=== PATIENT | male | born 1990 | race Caucasian/White ===

== ENCOUNTER 2018-03-06 05:35 | Outpatient (CLI) | payer OTHER ==
[~2018-03-06] VITALS: Ht 185.4 cm; Wt 113.4 kg
== END 2018-03-06 11:44 ==
LOC: PREOP 05:35 → EDUNIT# 10:45 → PREOP 11:44
PROVIDERS: ATTEND Otolaryngology Otolaryngology/Facial Plastic Surgery
DX: Z01.818 Encounter for other preprocedural examination (principal)

== ENCOUNTER 2018-03-13 08:17 | Day surgery (SDC) | payer OTHER ==
[~2018-03-13] VITALS: Ht 182.9 cm; Wt 112.9 kg
[2018-03-13 08:35] VITALS: BP 120/79
--- OUTSIDE RECORDS SUMMARY | 2018-03-13 08:38 | XMS REPORT ---
Author Author Beth Latham [facility] Address [address] [place], [place] [address] Care Team Providers Care Manufacturing Tech Name Role Phone Beth Latham PCP Sonal Bush PreferredProvider Allergies and Adverse Reactions Name Reaction Notes NO KNOWN DRUG ALLERGIES Plan of Treatment Planned Activity Comments Planned Date Planned Time Plan/Goal Flu vaccine, Quadrivalent, Split Virus (single-use syringe) - Flu shot clinic 01/22/2018 12:00 AM nasal congestion, chronic sinusitis Medications Active Name Start Date Estimated Completion Date SIG Comments Zyrtec-D 5-120 mg oral tablet extended release 12 hr 01/07/2018 take 1 tablet by oral route 2 times per day promethazine-codeine 6.25-10 mg/5 mL oral syrup 01/16/2018 take 5 milliliters by oral route every 4-6 hours as needed, not to exceed 30 mL in 24 hours Name Start Date Expiration Date SIG Comments azithromycin 500 mg oral tablet 03/17/2014 03/22/2014 take 1 tablet (500 mg) by oral route once daily x 5 days ProAir HFA 90 mcg/actuation inhalation HFA aerosol inhaler 03/17/2014 03/24/2014 inhale 2 puffs by inhalation route every 4 hours as needed for 7 days promethazine-codeine 6.25-10 mg/5 mL oral syrup 03/17/2014 03/24/2014 take 5 milliliters by oral route every 4-6 hours as needed, not to exceed 30 mL in 24 hours for 7 days cetirizine 10 mg oral tablet 06/01/2015 take 1 tablet (10 mg) by oral route once daily Singulair 10 mg oral tablet 07/20/2015 take 1 tablet (10 mg) by oral route once daily in the evening Nasonex 50 mcg/actuation nasal spray,non-aerosol 07/20/2015 inhale 1 spray by nasal route 2 times a day Zyrtec-D 5-120 mg oral tablet extended release 12 hr 07/20/2015 take 1 tablet by oral route 2 times per day Bactrim DS 800-160 mg oral tablet 01/07/2018 01/14/2018 take 1 tablet by oral route every 12 hours for 7 days Problem List Description Status Onset *No known medical problems Active Vital Signs Date Time BP-Sys(mm[Hg] BP-Colleen(mm[Hg]) HR(bpm) RR(rpm) Temp WT HT HC BMI BSA BMI Percentile O2 Sat(%) 01/07/2018 2:35:00 PM 126 mmHg 90 mmHg 75 bpm 20 rpm 98.4 F 258 lbs 72 in 34.9907 kg/m 2.4382 m 97 % 01/13/2017 2:40:00 PM 138 mmHg 74 mmHg 81 bpm 18 rpm 97.2 F 259 lbs 72 in 35.13 kg/m2 2.44 m2 97 % 11/06/2016 2:21:00 PM 138 mmHg 76 mmHg 88 bpm 16 rpm 97.9 F 264 lbs 72 in 35.80 kg/m2 2.47 m2 97 % 10/14/2016 10:06:00 AM 128 mmHg 70 mmHg 99 bpm 18 rpm 97.8 F 263.5 lbs 72 in 35.7367 kg/m 2.4641 m 97 % 07/20/2015 1:44:00 PM 118 mmHg 80 mmHg 82 bpm 20 rpm 97.6 F 261 lbs 72 in 35.40 kg/m2 2.45 m2 97 % 06/01/2015 10:54:00 AM 132 mmHg 74 mmHg 96 bpm 18 rpm 93.7 F 263 lbs 72 in 35.6688 kg/m 2.4617 m 97 % 02/16/2015 2:31:00 PM 130 mmHg 70 mmHg 75 bpm 18 rpm 97.8 F 256.375 lbs 72 in 34.77 kg/m2 2.43 m2 96 % 09/13/2014 2:45:00 PM 150 mmHg 70 mmHg 94 bpm 18 rpm 99.2 F 248.125 lbs 70 in 35.6019 kg/m 2.3577 m 96 % 03/17/2014 6:52:00 PM 140 mmHg 90 mmHg 95 bpm 18 rpm 98.7 F 257 lbs 72 in 34.86 kg/m2 2.43 m2 99 % 04/06/2013 3:10:00 PM 134 mmHg 68 mmHg 84 bpm 18 rpm 97.1 F 257.5 lbs 72 in 34.9229 kg/m 2.4359 m 96 % Social History Name Description Comments Alcohol Use - Occasional Tobacco 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 smoker 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 History of Procedures Date Ordered Description Order Status 06/01/2015 12:00 AM COMPLETE CBC W/AUTO DIFF WBC Reviewed 06/01/2015 12:00 AM COMPREHEN METABOLIC PANEL Reviewed 06/01/2015 12:00 AM LIPID PANEL Reviewed 07/20/2015 12:00 AM Decadron, Per 1 Mg [facility]# [id number] Reviewed 07/20/2015 12:00 AM Depo-Medrol 40mg Reviewed 01/13/2017 3:09 PM URINALYSIS AUTO W/O SCOPE Reviewed 01/07/2018 12:00 AM Decadron, Per 1 Mg [facility]# [id number] Reviewed 01/07/2018 12:00 AM Depo-Medrol 40mg Injection Reviewed 04/06/2013 12:00 AM POLYSOM 6/> YRS 4/> BASILIA Reviewed 03/17/2014 12:00 AM THER/PROPH/DIAG INJ SC/IM Reviewed 03/17/2014 12:00 AM Depo-Medrol 40mg Reviewed 03/17/2014 12:00 AM Decadron injection Reviewed 03/17/2014 12:00 AM Rocephin 1 gram [facility]#[id number] Reviewed Results Summary Date and Description Results 01/13/2017 3:09 PM Color Ur Lt Yellow Glucose Ur-sCnc Neg Bilirub Ur Ql Strip Neg Ketones Ur Ql Strip Neg Sp Gr Ur Qn 1.020 Hgb Ur Ql Strip Neg pH Ur-LsCnc 6.0 Prot Ur Ql Strip neg Urobilinogen Ur-mCnc 0.2 Nitrite Ur Ql Strip Neg WBC Est Ur Ql Strip Neg History Of Immunizations Not available. 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 Feb 16 2015 2:37PM Allergic rhinitis, unspecified allergic rhinitis type Jun 01 2015 10:56AM Screening for ischemic heart disease Jun 01 2015 10:56AM Fatigue, unspecified type Jun 01 2015 10:56AM Allergic rhinitis, unspecified allergic rhinitis type Jul 20 2015 1:48PM Chronic maxillary sinusitis Oct 14 2016 10:08AM Vomiting without nausea, intractability of vomiting not specified, unspecified vomiting type Nov 06 2016 2:21PM 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 Jan 13 2017 2:44PM Acute maxillary sinusitis, recurrence not specified Jan 07 2018 2:36PM Flu Vaccine Jan 22 2018 11:04AM Payers Insurance Name Company Name Plan Name Plan Number Policy Number Policy Group Number Start Date [facility] [employer] [id number] N/A Smit Ovens [id number] Friday [facility] Occupational Medicine [id number] N/A Smit Ovens [id number] N/A History of Encounters Visit Date Visit Type Provider 01/22/2018 Nurse visit Beth Latham APRN 01/07/2018 Office visit Sonal Bush APRN 01/13/2017 Office visit Sonal Bush APRN 11/15/2016 Surgery Skyler Galvin MD 11/06/2016 Office visit Skyler Galvin MD 10/14/2016 Office visit Sonal Bush APRN 07/20/2015 Office visit Sonal Bush APRN 06/01/2015 Office visit Sonal Bush APRN 02/16/2015 Office visit Sonal Bush APRN 09/13/2014 Office visit Sonal Bush APRN 03/17/2014 Office visit Bessie Diaz APRN 04/06/2013 Office visit Sonal Bush APRN
--- OUTSIDE RECORDS SUMMARY | 2018-03-13 08:38 | XMS REPORT | CCD ---
Author Author CLIFTON DÍAZ Unknown Address [address] [place] [address] Care Team Providers Care Metal Ceiling Hanger Name Role Phone ULI KHAN, DAVID Vera Attphys Allergies Allergy Code Allergy Type Reaction Status No Known Drug Allergies 0 Drug allergy Active Active Medications Unknown or Not Available. Problems Unknown or Not Available. Procedures Procedure Code Procedure Type Date Esophagogastroduodenoscopy, flexible, transoral; [place] [address] CPT 11/15/2016 PATHOLOGY ORDER [id number] SNOMED CT 11/15/2016 Results Unknown or Not Available. Function Status Unknown or Not Available. History of Immunizations Immunization Code Date Hep B, adult 43 07/23/2010 Hep B, adult 43 10/12/2010 Hep B, adult 43 02/05/2011 Novel [id number] 127 05/09/2009 Plan of Treatment Unknown or Not Available. Social History Smoking Status Code Start Date End Date Never smoker [id number] Vital Signs Vital Sign Value Unit Date/Time Recent/Initial? BMI (Body Mass Index) 32.98 kg/m2 11/14/2016 19:38 Initial VS Weight Measured 250 [lb_av] 11/14/2016 19:38 Initial VS Height 73 [in_i] 11/14/2016 19:38 Initial VS BSA (Body Surface Area) 2.42 m2 11/14/2016 19:38 Initial VS Function Status Unknown or Not Available. Goals Unknown or Not Available. ASSESSMENTS Unknown or Not Available. Health Concerns Section Unknown or Not Available.
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
--- OUTSIDE RECORDS SUMMARY | 2018-03-13 08:38 | XMS REPORT | CCD ---
Author Author DEMETRA HERNANDEZ Organization Unknown Address [address] [place] [address] Care Team Providers Care Finishing Room Supervisor Name Role Phone YESENIA ROMEO MD Attphys Allergies Unknown or Not Available. Active Medications Unknown or Not Available. Problems Unknown or Not Available. Procedures Unknown or Not Available. Results Unknown or Not Available. Function Status Unknown or Not Available. History of Immunizations Immunization Code Date Hep B, adult 43 07/23/2010 Hep B, adult 43 10/12/2010 Hep B, adult 43 02/05/2011 Novel [id number] 127 05/09/2009 Plan of Treatment Unknown or Not Available. Social History Smoking Status Code Start Date End Date Never smoker [id number] Vital Signs Unknown or Not Available. Function Status Unknown or Not Available. Goals Unknown or Not Available. ASSESSMENTS Unknown or Not Available. Health Concerns Section Unknown or Not Available.
--- OUTSIDE RECORDS SUMMARY | 2018-03-13 08:39 | XMS REPORT ---
Author Author Sonal Bush [facility] Address [address] [place], [place] [address] Care Team Providers Care Diesel Engine Specialist Name Role Phone Sonal Bush PCP Sonal Bush PreferredProvider Allergies and Adverse Reactions Name Reaction Notes NO KNOWN DRUG ALLERGIES Plan of Treatment Planned Activity Comments Planned Date Planned Time Plan/Goal nasal congestion, chronic sinusitis Medications Active Name Start Date Estimated Completion Date SIG Comments Zyrtec-D 5-120 mg oral tablet extended release 12 hr 01/07/2018 take 1 tablet by oral route 2 times per day Bactrim DS 800-160 mg oral tablet 01/07/2018 01/14/2018 take 1 tablet by oral route every 12 hours for 7 days Name Start Date Expiration Date SIG Comments [...] by oral route 2 times per day Problem List Description Status Onset *No known [...] Alcohol Use - Occasional Tobacco 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 History of Procedures Date Ordered Description Order Status 06/01/2015 12:00 AM COMPLETE CBC W/AUTO DIFF WBC Reviewed 06/01/2015 12:00 AM COMPREHEN METABOLIC PANEL Reviewed 06/01/2015 12:00 AM LIPID PANEL Reviewed 07/20/2015 12:00 AM Decadron, Per 1 Mg [facility]# [address]-45 Reviewed 07/20/2015 12:00 AM Depo-Medrol 40mg Reviewed 01/13/2017 3:09 PM URINALYSIS AUTO W/O SCOPE Reviewed 01/07/2018 12:00 AM Decadron, Per 1 Mg [facility]# [address]-47 Reviewed 01/07/2018 12:00 AM Depo-Medrol 40mg Injection Reviewed 04/06/2013 12:00 AM POLYSOM 6/> YRS 4/> BASILIA Reviewed 03/17/2014 12:00 AM THER/PROPH/DIAG INJ SC/IM Reviewed 03/17/2014 12:00 AM Depo-Medrol 40mg Reviewed 03/17/2014 12:00 AM Decadron injection Reviewed 03/17/2014 12:00 AM Rocephin 1 gram [facility]#2030-5166-07 Reviewed Results Summary Date and Description Results [...] recurrence not specified Jan 07 2018 2:36PM Payers Insurance Name Company Name Plan Name Plan Number Policy Number Policy Group Number Start Date [facility] [employer] [id number] N/A [employer] [id number] Friday [facility] Occupational Medicine [id number] N/A [employer] [id number] N/A History of Encounters Visit Date Visit Type Provider 01/07/2018 Office visit Sonal Bush APRN 01/13/2017 [...]
--- OUTSIDE RECORDS SUMMARY | 2018-03-13 08:39 | XMS REPORT ---
Author Author Sonal Bush [facility] Address [address] [place], [place] [address] Care Team Providers Care Economics Professor Name Role Phone Sonal Bush PCP Unavailable Sonal Bush PreferredProvider Unavailable Allergies and Adverse Reactions Name Reaction Notes NO KNOWN DRUG ALLERGIES Plan of Treatment Planned Activity Comments Planned Date Planned Time Plan/Goal nasal congestion, chronic sinusitis Medications Active Name Start Date Estimated Completion Date SIG Comments Nasonex 50 mcg/actuation nasal spray,non-aerosol 07/20/2015 inhale 1 spray by nasal route 2 times a day Name Start Date Expiration Date SIG Comments [...] oral route once daily in the evening Zyrtec-D 5-120 mg oral tablet extended release 12 hr 07/20/2015 take 1 tablet by oral route 2 times per day Problem List Description Status Onset *No known medical problems Active Vital Signs Date Time BP-Sys(mm[Hg] BP-Colleen(mm[Hg]) HR(bpm) RR(rpm) Temp WT HT HC BMI BSA BMI Percentile O2 Sat(%) 10/14/2016 10:06:00 AM 128 mmHg 70 mmHg 99 bpm 18 rpm 97.8 F 263.5 lbs 72 in 35.74 kg/m2 2.46 m2 97 % 07/20/2015 1:44:00 PM 118 mmHg 80 mmHg 82 bpm 20 rpm 97.6 F 261 lbs 72 in 35.3976 kg/m 2.4524 m 97 % 06/01/2015 10:54:00 AM 132 mmHg 74 mmHg 96 bpm 18 rpm 93.7 F 263 lbs 72 in 35.67 kg/m2 2.46 m2 97 % 02/16/2015 2:31:00 PM 130 mmHg 70 mmHg 75 bpm 18 rpm 97.8 F 256.375 lbs 72 in 34.7703 kg/m 2.4305 m 96 % 09/13/2014 2:45:00 PM 150 mmHg 70 mmHg 94 bpm 18 rpm 99.2 F 248.125 lbs 70 in 35.60 kg/m2 2.36 m2 96 % 03/17/2014 6:52:00 PM 140 mmHg 90 mmHg 95 bpm 18 rpm 98.7 F 257 lbs 72 in 34.8551 kg/m 2.4335 m 99 % 04/06/2013 3:10:00 PM 134 mmHg 68 mmHg 84 bpm 18 rpm 97.1 F 257.5 lbs 72 in 34.92 kg/m2 2.44 m2 96 % Social History Name Description Comments Alcohol Use - Occasional Tobacco 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 History of Procedures Date Ordered Description Order Status 06/01/2015 12:00 AM COMPLETE CBC W/AUTO DIFF WBC Reviewed 06/01/2015 12:00 AM COMPREHEN METABOLIC PANEL Reviewed 06/01/2015 12:00 AM LIPID PANEL Reviewed 07/20/2015 12:00 AM Decadron, Per 1 Mg [facility]# [address]-74 Reviewed 07/20/2015 12:00 AM Depo-Medrol 40mg Reviewed 04/06/2013 12:00 AM POLYSOM 6/> YRS 4/> BASILIA Reviewed 03/17/2014 12:00 AM THER/PROPH/DIAG INJ SC/IM Reviewed 03/17/2014 12:00 AM Depo-Medrol 40mg Reviewed 03/17/2014 12:00 AM Decadron injection Reviewed 03/17/2014 12:00 AM Rocephin 1 gram [facility]#8936-7650-47 Reviewed Results Summary Not available. History Of Immunizations Not available. History of [...] Chronic maxillary sinusitis Oct 14 2016 10:08AM Payers Insurance Name Company Name Plan Name Plan Number Policy Number Policy Group Number Start Date [facility] [employer] [id number] Saturday, 2013 [employer] [id number] Friday [facility] Occupational Medicine [id number] N/A [employer] [id number] N/A History of Encounters Visit Date Visit Type Provider 10/14/2016 Office visit Sonal Bush APRN 07/20/2015 Office visit Sonal Bush APRN 06/01/2015 Office visit Sonal Bush APRN 02/16/2015 Office visit Sonal Bush APRN 09/13/2014 Office visit Sonal Bush APRN 03/17/2014 Office visit Bessie Diaz APRN 04/06/2013 Office visit Sonal Bush APRN
--- OUTSIDE RECORDS SUMMARY | 2018-03-13 08:39 | XMS REPORT ---
Author Author Sonal Bush Organization [facility] Address [address] [place], [place] [address] Care Team Providers Care Shake Splitter Name Role Phone Sonal Bush PCP Unavailable Allergies and Adverse Reactions Name Reaction Notes NO KNOWN DRUG ALLERGIES Plan of Treatment Not available. 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 History Of [...] driving license) exam Feb 16 2015 2:37PM Payers Insurance Name Company Name Plan Name Plan Number Policy Number Policy Group Number Start Date [facility] [employer] [facility] [employer] [id number] Saturday, 2013 [email or web address] [id number] Friday [facility] Occupational Medicine [id number] N/A [id number] N/A History of Encounters Visit Date Visit Type Provider 02/16/2015 Office visit Sonal Bush APRN 09/13/2014 Office visit Sonal Bush APRN 03/17/2014 Office visit Bessie Diaz APRN 04/06/2013 Office visit Sonal Bush APRN
--- OUTSIDE RECORDS SUMMARY | 2018-03-13 08:39 | XMS REPORT ---
Author Author Sonal Bush Organization [facility] Address [address] [place], [place] [address] Care Team Providers Care Secret Service Agent Name Role Phone Sonal Bush PCP Unavailable Allergies and Adverse Reactions Name Reaction Notes NO KNOWN DRUG ALLERGIES Plan of Treatment Not available. Medications Name Start Date Expiration Date SIG Comments azithromycin oral tablet 500 mg 03/17/2014 03/22/2014 take 1 tablet (500 mg) by oral route once daily x 5 days ProAir HFA inhalation HFA aerosol inhaler 90 mcg/actuation 03/17/2014 03/24/2014 inhale 2 puffs by inhalation route every 4 hours as needed for 7 days promethazine-codeine oral syrup 6.25-10 mg/5 mL 03/17/2014 03/24/2014 take 5 milliliters by oral route every 4-6 hours as needed, not to exceed 30 mL in 24 hours for 7 days Problem List Description Status Onset *No known medical problems Active Vital Signs Date Time BP-Sys(mm[Hg] BP-Colleen(mm[Hg]) HR(bpm) RR(rpm) Temp WT HT HC BMI BSA BMI Percentile O2 Sat(%) 09/13/2014 2:45:00 PM 150 mmHg 70 mmHg [...] Alcohol Use - Occasional Tobacco 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 History Of [...] 2014 6:53PM Concussion Sep 13 2014 2:48PM Payers Insurance Name Company Name Plan Name Plan Number Policy Number Policy Group Number Start Date [facility] [facility] [id number] Saturday, 2013 [employer] [id number] Friday [employer] [id number] N/A History of Encounters Visit Date Visit Type Provider 09/13/2014 Office visit Sonal Bush APRN 03/17/2014 Office visit Bessie Diaz APRN 04/06/2013 Office visit Sonal Bush APRN
--- OUTSIDE RECORDS SUMMARY | 2018-03-13 08:39 | XMS REPORT ---
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 History of Procedures Date Ordered Description Order Status 06/01/2015 12:00 AM COMPLETE CBC W/AUTO DIFF WBC Reviewed 06/01/2015 12:00 AM COMPREHEN METABOLIC PANEL Reviewed 06/01/2015 12:00 AM LIPID PANEL Reviewed 07/20/2015 12:00 AM Decadron, Per 1 Mg [facility]# [address]-52 Reviewed 07/20/2015 12:00 AM Depo-Medrol 40mg Reviewed 04/06/2013 12:00 AM POLYSOM 6/> YRS 4/> BASILIA Reviewed 03/17/2014 12:00 AM THER/PROPH/DIAG INJ SC/IM Reviewed 03/17/2014 12:00 AM Depo-Medrol 40mg Reviewed 03/17/2014 12:00 AM Decadron injection Reviewed 03/17/2014 12:00 AM Rocephin 1 gram [facility]#5902-0125-18 Reviewed Results Summary Not available. History Of [...] Policy Number Policy Group Number Start Date [facility] [employer] [id number] Saturday, 2013 [employer] [id number] Friday [facility] Occupational Medicine [id number] N/A [employer] [id number] N/A History of Encounters Visit Date Visit Type Provider 10/14/2016 Office visit Sonal Bush APRN 07/20/2015 Office visit Sonal Bush APRN 06/01/2015 Office visit Sonal Bush APRN 02/16/2015 Office visit Sonal Bush APRN 09/13/2014 Office visit Sonal Bush APRN 03/17/2014 Office visit Bessie Diaz APRN 04/06/2013 Office visit Sonal Bush APRN
--- OUTSIDE RECORDS SUMMARY | 2018-03-13 08:40 | XMS REPORT ---
Author Sonal Meza [facility] Address [address] [place], [place] [id number] Care Team Providers Care Lead Manufacturing Technician Name Role Phone Sonal Bush PCP Unavailable Allergies and Adverse Reactions Name Reaction Notes NO KNOWN DRUG ALLERGIES Plan of Treatment Not available. Medications Active Name Start Date Estimated Completion Date SIG Comments cetirizine 10 mg oral tablet 06/01/2015 take [...] by oral route 2 times per day Name Start Date Expiration Date SIG [...] HC BMI BSA BMI Percentile O2 Sat(%) 07/20/2015 1:44:00 PM 118 mmHg 80 mmHg [...] Alcohol Use - Occasional Tobacco Never smoker [employer] alone History of Procedures Date Ordered Description Order Status 06/01/2015 12:00 AM COMPLETE CBC W/AUTO DIFF WBC Returned 06/01/2015 12:00 AM COMPREHEN METABOLIC PANEL Returned 06/01/2015 12:00 AM LIPID PANEL Returned 07/20/2015 12:00 AM Decadron, Per 1 Mg [facility]# [address]-93 Reviewed 07/20/2015 12:00 AM Depo-Medrol 40mg Reviewed 04/06/2013 12:00 AM POLYSOM 6/> YRS 4/> BASILIA Returned 03/17/2014 12:00 AM THER/PROPH/DIAG INJ SC/IM Reviewed 03/17/2014 12:00 AM Depo-Medrol 40mg Reviewed 03/17/2014 12:00 AM Decadron injection Reviewed 03/17/2014 12:00 AM Rocephin 1 gram [facility]#6899-3409-67 Reviewed Results Summary Not available. History Of [...] allergic rhinitis type Jul 20 2015 1:48PM Payers Insurance Name Company Name Plan Name Plan Number Policy Number Policy Group Number Start Date [facility] [employer] Core[employer] [id number] Saturday, 2013 [employer] [id number] Friday [facility] Med Occupational Medicine [id number] N/A [employer] [id number] N/A History of Encounters Visit Date Visit Type Provider 07/20/2015 Office visit Sonal Bush APRN 06/01/2015 Office visit Sonal Bush APRN 02/16/2015 Office visit Sonal Bush APRN 09/13/2014 Office visit Sonal Bush APRN 03/17/2014 Office visit Bessie Diaz APRN 04/06/2013 Office visit Sonal Bush APRN
--- OUTSIDE RECORDS SUMMARY | 2018-03-13 08:40 | XMS REPORT ---
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 History of Procedures Date Ordered Description Order Status 06/01/2015 12:00 AM COMPLETE CBC W/AUTO DIFF WBC Returned 06/01/2015 12:00 AM COMPREHEN METABOLIC PANEL Returned 06/01/2015 12:00 AM LIPID PANEL Returned 07/20/2015 12:00 AM Decadron, Per 1 Mg [facility][NOTE 3]# [address]-32 Reviewed 07/20/2015 12:00 AM Depo-Medrol 40mg Reviewed 04/06/2013 12:00 AM POLYSOM 6/> YRS 4/> BASILIA Returned 03/17/2014 12:00 AM THER/PROPH/DIAG INJ SC/IM Reviewed 03/17/2014 12:00 AM Depo-Medrol 40mg Reviewed 03/17/2014 12:00 AM Decadron injection Reviewed 03/17/2014 12:00 AM Rocephin 1 gram [facility][NOTE 3]#5613-1829-11 Reviewed Results Summary Not available. History Of [...] Policy Number Policy Group Number Start Date [facility] [employer] [id number] Saturday, 2013 [employer] [id number] Friday [facility] Med Occupational Medicine [id number] N/A [employer] [id number] N/A History of Encounters Visit Date Visit Type Provider 07/20/2015 Office visit Sonal Bush APRN 06/01/2015 Office visit Sonal Bush APRN 02/16/2015 Office visit Sonal Bush APRN 09/13/2014 Office visit Sonal Bush APRN 03/17/2014 Office visit Bessie Diaz APRN 04/06/2013 Office visit Sonal Bush APRN
--- OUTSIDE RECORDS SUMMARY | 2018-03-13 08:40 | XMS REPORT ---
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 History of Procedures Date Ordered Description Order Status 06/01/2015 12:00 AM COMPLETE CBC W/AUTO DIFF WBC Returned 06/01/2015 12:00 AM COMPREHEN METABOLIC PANEL Returned 06/01/2015 12:00 AM LIPID PANEL Returned 07/20/2015 12:00 AM Decadron, Per 1 Mg [facility]# [address]-61 Reviewed 07/20/2015 12:00 AM Depo-Medrol 40mg Reviewed 04/06/2013 12:00 AM POLYSOM 6/> YRS 4/> BASILIA Returned 03/17/2014 12:00 AM THER/PROPH/DIAG INJ SC/IM Reviewed 03/17/2014 12:00 AM Depo-Medrol 40mg Reviewed 03/17/2014 12:00 AM Decadron injection Reviewed 03/17/2014 12:00 AM Rocephin 1 gram [facility]#6008-3298-64 Reviewed Results Summary Not available. History Of [...] Policy Number Policy Group Number Start Date [facility] [employer] [id number] Saturday, 2013 [employer] [id number] Friday [facility] Med Occupational Medicine [id number] N/A [employer] [id number] N/A History of Encounters Visit Date Visit Type Provider 07/20/2015 Office visit Sonal Bush APRN 06/01/2015 Office visit Sonal Bush APRN 02/16/2015 Office visit Sonal Bush APRN 09/13/2014 Office visit Sonal Bush APRN 03/17/2014 Office visit Bessie Diaz APRN 04/06/2013 Office visit Sonal Bush APRN
--- OUTSIDE RECORDS SUMMARY | 2018-03-13 08:40 | XMS REPORT ---
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 History of Procedures Date Ordered Description Order Status 06/01/2015 12:00 AM COMPLETE CBC W/AUTO DIFF WBC Reviewed 06/01/2015 12:00 AM COMPREHEN METABOLIC PANEL Reviewed 06/01/2015 12:00 AM LIPID PANEL Reviewed 07/20/2015 12:00 AM Decadron, Per 1 Mg [facility]# [address]-77 Reviewed 07/20/2015 12:00 AM Depo-Medrol 40mg Reviewed 04/06/2013 12:00 AM POLYSOM 6/> YRS 4/> BASILIA Reviewed 03/17/2014 12:00 AM THER/PROPH/DIAG INJ SC/IM Reviewed 03/17/2014 12:00 AM Depo-Medrol 40mg Reviewed 03/17/2014 12:00 AM Decadron injection Reviewed 03/17/2014 12:00 AM Mohinder knox [facility]#5251-2381-27 Reviewed Results Summary Not available. History Of [...] unspecified vomiting type Nov 06 2016 2:21PM Payers Insurance Name Company Name Plan Name Plan Number Policy Number Policy Group Number Start Date [facility] [employer] [id number] Saturday, 2013 [employer] [id number] Friday [facility] Occupational Medicine [id number] N/A [employer] [id number] N/A History of Encounters Visit Date Visit Type Provider 11/06/2016 Office visit Skyler Galvin MD 10/14/2016 Office visit Sonal Bush APRN 07/20/2015 Office visit Sonal Bush APRN 06/01/2015 Office visit Sonal Bush APRN 02/16/2015 Office visit Sonal Bush APRN 09/13/2014 Office visit Sonal Bush APRN 03/17/2014 Office visit Bessie Diaz APRN 04/06/2013 Office visit Sonal Bush APRN
--- OUTSIDE RECORDS SUMMARY | 2018-03-13 08:41 | XMS REPORT ---
Author Author Sonal Bush Organization [facility] Address [address] [place], [place] [phone] Care Team Providers Care Vice President Investor Relations Name Role Phone Sonal Bush PCP Unavailable Allergies and Adverse Reactions Name Reaction Notes NO KNOWN DRUG ALLERGIES Plan of Treatment Planned Activity Comments Planned Date Planned Time Plan/Goal COMPLETE CBC W/AUTO DIFF WBC 06/01/2015 12:00 AM COMPREHEN METABOLIC PANEL 06/01/2015 12:00 AM LIPID PANEL 06/01/2015 12:00 AM Medications Active Name Start Date Estimated Completion [...] Alcohol Use - Occasional 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 History Of [...] Policy Number Policy Group Number Start Date [facility] [employer] [id number] Saturday, 2013 [employer] [id number] Friday [facility] Occupational Medicine [id number] N/A [employer] [id number] N/A History of Encounters Visit Date Visit Type Provider 07/20/2015 Office visit Sonal Bush APRN 06/01/2015 Office visit Sonal Bush APRN 02/16/2015 Office visit Sonal Bush APRN 09/13/2014 Office visit Sonal Bush APRN 03/17/2014 Office visit Bessie Diaz APRN 04/06/2013 Office visit Sonal Bush APRN
--- OUTSIDE RECORDS SUMMARY | 2018-03-13 08:41 | XMS REPORT | Continuity of Care Document ---
Author Author [facility] Organization [facility] Address Unknown Phone Unavailable Allergies There is no data. Medications There is no data. Problems There is no data. Procedures There is no data. Results There is no data. Encounters ACCT No. Visit Date/Time Discharge Status Pt. Type Provider Facility Loc./Unit Complaint [id number] 01/07/2018 15:25:13 01/07/2018 23:59:59 CLS Outpatient Sonal Bush [id number] 01/13/2017 15:12:23 01/13/2017 23:59:59 CLS Outpatient Sonal Bush [id number] 11/21/2016 17:59:51 11/21/2016 23:59:59 CLS Outpatient Skyler Galvin [id number] 11/06/2016 15:10:11 11/06/2016 23:59:59 CLS Outpatient Skyler Galvin [id number] 10/14/2016 11:00:47 10/14/2016 23:59:59 CLS Outpatient Sonal Bush [id number] 06/01/2015 11:49:38 06/01/2015 23:59:59 CLS Outpatient Eleazar Sonal [id number] 02/16/2015 15:28:56 02/16/2015 23:59:59 CLS Outpatient Sonal Bush [id number] 10/24/2014 22:06:57 10/24/2014 23:59:59 CLS Outpatient Sonal Bush [id number] 03/17/2014 18:26:03 03/17/2014 23:59:59 CLS Outpatient Bessie Diaz [id number] 04/06/2013 15:58:36 04/06/2013 23:59:59 CLS Outpatient Sonal Bush
[2018-03-13] MEDS: LACTATED RINGERS 1,000 ML IV PRN ×2 (08:50→11:37)
[2018-03-13 08:53] LABS: BASOPHILS % (AUTO) 1 % (0-10); EOSINOPHILS # (AUTO) 0.1 10^3/uL (0.0-0.3); EOSINOPHILS % (AUTO) 1 % (0-10); HEMATOCRIT 44 % (40-54); HEMOGLOBIN 15.9 G/DL (13.3-17.7); LYMPHOCYTES # (AUTO) 1.8 X 10^3 (1.0-4.0); LYMPHOCYTES % (AUTO) 34 % (12-44); MEAN CORPUSCULAR HEMOGLOBIN 30 PG (25-34); MEAN CORPUSCULAR HGB CONC 36 G/DL (32-36); MEAN CORPUSCULAR VOLUME 82 FL (80-99); MONOCYTES # (AUTO) 0.4 X 10^3 (0.0-1.0); MONOCYTES % (AUTO) 8 % (0-12); NEUTROPHILS % (AUTO) 57 % (42-75); PLATELET COUNT 187 10^3/uL (130-400); RED BLOOD COUNT 5.35 10^6/uL (4.35-5.85); RED CELL DISTRIBUTION WIDTH 13.1 % (10.0-14.5); WHITE BLOOD COUNT 5.4 10^3/uL (4.3-11.0)
[2018-03-13 09:12] LABS: BUN/CREATININE RATIO 13; CALCIUM 9.4 MG/DL (8.5-10.1); CARBON DIOXIDE 23 MMOL/L (21-32); CHLORIDE 104 MMOL/L (98-107); CREATININE SERUM 0.98 MG/DL (0.60-1.30); GFR ESTIMATED > 60; GLUCOSE 100 MG/DL (70-105); POTASSIUM 4.2 MMOL/L (3.6-5.0); SODIUM 139 MMOL/L (135-145)
[2018-03-13] MEDS ORDERED: PHENYLEPHRINE 0.5% NASAL SPR (NEO-SYNEPHRINE) REG ONE (09:16)
[2018-03-13] MEDS ORDERED: BSS 15 ML ONE (09:16)
[2018-03-13] MEDS ORDERED: LIDOCAINE/EPI 1%-1:100,000 (XYLOCAINE) 20ML ONE (09:16)
[2018-03-13] MEDS ORDERED: COCAINE HCL 4% 2 ML SYR ONE (09:16)
--- NOTE | 2018-03-13 10:09 | Progress Note-Pre Operative ---
Pre-Operative Progress Note H&P Reviewed The H&P was reviewed, patient examined and no changes noted. Date Seen by Provider: Mar 13, 2018 Time Seen by Provider: 10:00 Date H&P Reviewed: Mar 13, 2018 Time H&P Reviewed: 10:00 Pre-Operative Diagnosis: Deviated Nasal Septum, Bilat Hyper of Inf Turbs DAVID TRONCOSO MD Mar 13, 2018 10:09
[2018-03-13] MEDS ORDERED: ONDANSETRON 4 MG/2 ML (SDV) Z0FRAN ONE (10:35)
[2018-03-13] MEDS ORDERED: LIDOCAINE PF 2% 5 ML (XYLOCAINE) VIAL ONE (10:35)
[2018-03-13] MEDS ORDERED: ROCURONIUM 10 MG/ML 5 ML SYRINGE IV ONE (10:35)
[2018-03-13] MEDS ORDERED: proPOfol 200 MG/20 ML (DIPRIVAN) VIAL IV ONE (10:35)
[2018-03-13] MEDS ORDERED: MIDAZOLAM 2 MG/2 ML (VERSED) VIAL ONE (10:36)
[2018-03-13] MEDS ORDERED: SEVOFLURANE (ULTANE) 15 ML INHAL SOLN ONE ×3 (10:36→11:25)
[2018-03-13] MEDS ORDERED: fentaNYL INJECTION 100 MCG/2 ML AMP ONE (10:36)
[2018-03-13] MEDS ORDERED: NEOSTIGMINE 1 MG/ML 5 ML SYRINGE ONE (11:28)
[2018-03-13] MEDS ORDERED: GLYCOPYRROLATE 0.2 MG/ML (ROBINUL) 2 ML VIAL ONE (11:28)
[2018-03-13] MEDS ORDERED: D5 1/2 NS W/KCL 20 MEQ/L 1,000 ML IV SCH (11:34)
--- NOTE | 2018-03-13 11:34 | Progress Note-Post Operative ---
Post-Operative Progess Note Surgeon (s)/Addictions Recovery Specialist (s) Surgeon DAVID TRONCOSO MD Addictions Recovery Specialist n/a Pre-Operative Diagnosis Deviated Nasal Septum, Bilat Hyper of Inf Turbs Post-Operative Diagnosis same Post-Op Procedure Note Date of Procedure: Mar 13, 2018 Name of Procedure Performed: Nasal Septoplasty, Bialt Red of Inf Turbinates Description & Findings Description and Findings: n/a Anesthesia Type get Estimated Blood Loss minimal Packing none. Specimen(s) collected/removed nasal septum DAVID TRONCOSO MD Mar 13, 2018 11:34
[2018-03-13] MEDS ORDERED: PROMETHAZINE INJ 25 MG/ML (PHENERGAN) AMP IVP ONE (11:45)
[2018-03-13] MEDS ORDERED: ONDANSETRON 4 MG/2 ML (SDV) Z0FRAN IVP PRN (11:45)
[2018-03-13] MEDS ORDERED: MEPERIDINE (DEMEROL) INJ 50 MG/ML IVP ONE (11:45)
[2018-03-13] MEDS ORDERED: HYDROcodone/APAP 5 MG/325 MG (LORTAB) TAB PO PRN (11:45)
[2018-03-13] MEDS ORDERED: PROMETHAZINE INJ 25 MG/ML (PHENERGAN) AMP IVP PRN (11:45)
[2018-03-13] MEDS ORDERED: HYDROmorphone 2 MG/ML VIAL (DILAUDID) IV ONE (11:45)
[2018-03-13] MEDS ORDERED: morphine INJ 10 MG/ML 1ML (SYR OR VIAL) IVP ONE (11:45)
[2018-03-13] MEDS ORDERED: ACETAMINOPHEN 325 MG TABLET PO PRN (11:45)
[2018-03-13 12:35] VITALS: BP 135/92
[2018-03-13] MEDS ORDERED: HYDR-3812 PO (12:49)
[2018-03-13] MEDS ORDERED: AMOX500T2 PO (12:49)
[2018-03-13 13:05] VITALS: BP 130/86
[2018-03-13 13:35] VITALS: BP 128/86
--- NOTE | 2018-03-13 14:33 | Anesthesia-General Post-Op ---
General Patient Condition Mental Status/LOC: Same as Preop Cardiovascular: Satisfactory Nausea/Vomiting: Absent Respiratory: Satisfactory Pain: Controlled Complications: Absent Post Op Complications Complications None Follow Up Care/Instructions Patient Instructions None needed. Anesthesia/Patient Condition Patient Condition Patient is doing well, no complaints, stable vital signs, no apparent adverse anesthesia problems. No complications reported per nursing. D/C home per [facility] Criteria: Yes GIULIANO MANJARREZ CRNA Mar 13, 2018 14:33
== END 2018-03-13 14:25 | disposition home or self-care (01) ==
LOC: SDC 08:17
PROVIDERS: ATTEND Otolaryngology Otolaryngology/Facial Plastic Surgery
DX: J34.2 Deviated nasal septum (principal); J34.3 Hypertrophy of nasal turbinates
CPT/HCPCS: 36415; 80048; 85025; 87081